=== PATIENT | female | born 1995 ===

== ENCOUNTER 2016-12-08 22:46 | Emergency (ER) | payer MEDICAID ==
[2016-12-08 22:57] VITALS: BP 127/75; PULSE 84; RESP 18; TEMP 97.8; O2SAT 99
--- NOTE | 2016-12-08 23:10 | ED PDOC ---
Upper Extremity Pain/Injury Time Seen by Provider: 12/08/16 23:08 Chief Complaint (Nursing): Upper Extremity Problem/Injury Chief Complaint (Provider): LEFT WRIST PAIN History Per: Patient (21 Y/O FEMALE WITH LEFT WRIST PAIN NOTED AFTER WORK X 2 DAYS WORSENING TODAY. PATIENT STATES SHE WORKS A [employer] AND HAS HYPEREXTENDED WRIST AT ONE TIME. TOOK 1 IBUPROFEN WITHOUT RELIEF TODAY. DENIES ANY FALLS.) Past Medical History Reviewed: Historical Data, Nursing Documentation, Vital Signs Vital Signs: Last Vital Signs Temp 97.8 F 12/08/16 22:53 Pulse 84 12/08/16 22:53 Resp 18 12/08/16 22:53 BP 127/75 12/08/16 22:53 Pulse Ox 99 12/08/16 22:53 - Family History Family History: States: No Known Family Hx - Home Medications Home Medications: Ambulatory Orders Medication Instructions Recorded Naproxen 375 mg PO Q8 PRN #21 tablet 12/08/16 - Allergies Allergies/Adverse Reactions: Allergies Allergy/AdvReac Type Severity Reaction Status Date / Time No Known Allergies Allergy Verified 12/08/16 22:53 Review of Systems ROS Statement: Except As Marked, All Systems Reviewed And Found Negative Musculoskeletal: Positive for: Other (WRIST PAIN) Physical Exam - Reviewed Nursing Documentation Reviewed: Yes Vital Signs Reviewed: Yes - Physical Exam Appears: Positive for: Well, Non-toxic, No Acute Distress Head Exam: Positive for: ATRAUMATIC, NORMAL INSPECTION, NORMOCEPHALIC Skin: Positive for: Normal Color, Warm, DRY Eye Exam: Positive for: EOMI, Normal appearance, PERRL ENT: Positive for: Normal ENT Inspection Neck: Positive for: Normal, Painless ROM Cardiovascular/Chest: Positive for: Regular Rate, Rhythm Respiratory: Positive for: CNT, Normal Breath Sounds Gastrointestinal/Abdominal: Positive for: Normal Exam, Bowel Sounds, Soft Back: Positive for: Normal Inspection Extremity: Positive for: Normal ROM, Swelling (LEFT WRIST SWELLING DORSUM; NO BONY TENDERNESS NOTED; NO ECCHYMOSIS) Neurologic/Psych: Positive for: Alert, Oriented - ECG O2 Sat by Pulse Oximetry: 99 - Progress ED Course And Treament: WRIST XRY: NO ACUTE INJURY PLACED IN VOLAR SPLINT Disposition - Clinical Impression Clinical Impression: Tendonitis - Patient ED Disposition Is Patient to be Admitted: No - Disposition Referrals: Porfirio Jaramillo MD [Primary Care Provider] - Disposition: Routine/Home Disposition Time: 23:12 Condition: FAIR Prescriptions: Naproxen 375 mg PO Q8 PRN #21 tablet PRN Reason: Pain, Moderate (4-7) Instructions: Tendinitis (ED) Forms: [facility] (Yoruba)
--- NOTE | 2016-12-09 08:44 | RAD ---
PROCEDURE: Left Wrist Radiographs. HISTORY: Posttraumatic left wrist pain COMPARISON: None. FINDINGS: BONES: Normal. No fracture. JOINTS: Normal. No dislocation. SOFT TISSUES: Normal. OTHER FINDINGS: None. IMPRESSION: No acute findings related to/accounting for the clinical presentation. Please note: No preliminary report/ innterpretation of this examination provided by emergency department personnel.
== END 2016-12-08 23:47 | disposition home or self-care (01) ==
LOC: H.ER 22:46
DX: M77.8 Other enthesopathies, not elsewhere classified (principal)